=== PATIENT | female | born 1995 | race African-American/Black ===

== ENCOUNTER 2021-08-29 16:00 | Observation (INO) ==
[2021-08-29] MEDS ORDERED: ONDANSETRON 4 MG/2 ML VIAL IV STA (17:00)
[2021-08-29] MEDS ORDERED: SODIUM CHLORIDE 0.9% 1,000 ML IV STA (17:00)
[2021-08-29 17:23] LABS: Mucus,Urine Many /LPF (Occasional); RBC,Urine 11 /HPF (0-4); Squamous Epithelial Cell,Urine Few /HPF (0-10)
[2021-08-29 17:25] LABS: Urine Appearance Slightly Cloudy (Clear); Urine Color Orange (Yellow)
[2021-08-29 17:26] LABS: Protein,Urine 2+ MG/DL; Urine Specific Gravity 1.027 (1.001-1.035)
[2021-08-29 17:27] LABS: Bilirubin,Urine Small mg/dL (Negative); Blood, Urine Trace mg/dL (Negative); Glucose,Urine (UA) Negative (Negative); Ketones,Urine >=160 mg/dL (Negative); Nitrite,Urine Negative (Negative)
[2021-08-29] MEDS ORDERED: cefTRIAXone 1,000 MG in SODIUM CHLORIDE 0.9% 100 ML IV STA (17:44)
[2021-08-29 17:57] LABS: Basophils % 0.4 % (0.0-0.8); Eosinophils % 0.1 % (0.00-10.9); Hemoglobin 13.4 GM/DL (12.0-16.0); Immature Granulocytes % 0.4 %; Immature Granulocytes Absolute 0.03 #; Lymphocytes # 1.7 10*3/uL (1.4-4.0); Mean Corpuscular HGB Conc 36.2 GM/DL (32-36); Mean Corpuscular Volume 85.3 FL (87-102); Mean Platelet Volume 9.3 FL (9.6-12.0); Neutrophils % 69.1 % (38.7-73.9); Platelet Count 357 T/CUMM (130-400); Red Blood Count 4.34 MC/CUMM (3.8-5.5); Red Cell Distribution Width 12.9 % (9.3-17.3); White Blood Count 8.3 T/CUMM (4-12)
[2021-08-29 18:08] LABS: Albumin 3.2 G/DL (3.4-5.0); Bilirubin,Total 1.6 MG/DL (0.20-1.00); Calcium 9.3 MG/DL (8.5-10.1); Osmolality,Calculated 259.5 MOS/KG (273-304); Total Protein 7.7 G/DL (6.4-8.2)
[2021-08-29 18:12] LABS: Potassium 2.5 MMOL/L (3.5-5.1)
[2021-08-29] MEDS ORDERED: ACETAMINOPHEN 325 MG TABLET PO PRN (19:43)
[2021-08-29] MEDS: SODIUM CHLORIDE 0.9% 1,000 ML IV SCH (20:02)
[2021-08-29] MEDS: POTASSIUM CHLORIDE RIDER 10 MEQ/100 ML PREMIX IV SCH ×3 (21:46→23:24)
[2021-08-30] MEDS: POTASSIUM CHLORIDE RIDER 10 MEQ/100 ML PREMIX IV SCH (00:35)
[2021-08-30] MEDS: ONDANSETRON 4 MG/2 ML VIAL IV SCH ×7 (00:35→20:10)
[2021-08-30] MEDS: SODIUM CHLORIDE 0.9% 1,000 ML IV SCH (06:28)
[2021-08-30 07:26] LABS: Calcium 8.4 MG/DL (8.5-10.1)
[2021-08-30 07:38] LABS: Potassium 2.3 MMOL/L (3.5-5.1)
[2021-08-30] MEDS ORDERED: POTASSIUM CHLORIDE RIDER 10 MEQ/100 ML PREMIX IV PRN (07:45)
[2021-08-30] MEDS ORDERED: POTASSIUM CHLORIDE 20 MEQ TABLET PO SCH ×2 (09:00→15:00)
[2021-08-30] MEDS ORDERED: LEVOFLOXACIN INJ 250 MG/50 ML PREMIX IV SCH (13:00)
[2021-08-30] MEDS: PANTOPRAZOLE 40 MG VIAL IV SCH ×2 (13:50→21:38)
[2021-08-30] MEDS: SODIUM CHLOR 0.9% KCL 20 MEQ 20 MEQ/1,000 ML BAG IV SCH (14:58)
[2021-08-30] MEDS ORDERED: ONDANSETRON 4 MG/2 ML VIAL IV PRN (18:00)
[2021-08-30] MEDS: POTASSIUM BICARB EFFERVESCENT 20 MEQ TAB.EFF PO SCH (22:33)
[2021-08-30] MEDS ORDERED: METOCLOPRAMIDE 10 MG/2 ML VIAL IV PRN (23:14)
[2021-08-31] MEDS: SODIUM CHLOR 0.9% KCL 20 MEQ 20 MEQ/1,000 ML BAG IV SCH (00:11)
[2021-08-31] MEDS: ONDANSETRON 4 MG/2 ML VIAL IV SCH ×4 (00:17→12:31)
[2021-08-31] MEDS ORDERED: SCOPOLAMINE 1.5 MG PATCH TRANSDERM SCH ×2 (03:55→09:00)
[2021-08-31 05:57] LABS: Blood Urea Nitrogen < 1 MG/DL (7-18); Calcium 8.4 MG/DL (8.5-10.1); Carbon Dioxide 17 MMOL/L (21-32); Estimated Glom Filtration Rate 208 ML/MIN; Glucose 80 MG/DL (74-106); Osmolality,Calculated 268.2 MOS/KG (273-304); Potassium 2.7 MMOL/L (3.5-5.1); Sodium 137 MMOL/L (136-145)
[2021-08-31] MEDS: PANTOPRAZOLE 40 MG VIAL IV SCH (09:17)
[2021-08-31] MEDS: POTASSIUM BICARB EFFERVESCENT 20 MEQ TAB.EFF PO SCH (09:18)
[2021-08-31 17:34] VITALS: BP 110/64
== END 2021-08-31 17:00 | disposition home or self-care (01) ==
LOC: N.EDINP 16:00 → N.ED 16:00 → N.EDINP 19:23 → N.OB 19:28 → UNDODISOB 08-31 17:00
PROVIDERS: ADMIT Obstetrics & Gynecology; ATTEND Obstetrics & Gynecology

== ENCOUNTER 2021-11-04 10:07 | Observation (INO) ==
[2021-11-04 11:55] LABS: Basophils # 0.1 10*3/uL (0.0-0.2); Basophils % 0.4 % (0.0-0.8); Eosinophils # 0.1 10*3/uL (0.0-0.87); Eosinophils % 0.6 % (0.00-10.9); Hematocrit 29.4 VOL% (35.7-47.0); Immature Granulocytes % 3.1 %; Immature Granulocytes Absolute 0.39 #; Lymphocytes # 2.1 10*3/uL (1.4-4.0); Lymphocytes % 16.2 % (21.3-54.2); Mean Corpuscular Volume 95.5 FL (87-102); Mean Platelet Volume 8.5 FL (9.6-12.0); Monocytes # 1.2 10*3/uL (0.11-0.8); Monocytes % 9.2 % (1.7-12.7); NRBC # 0.03 10*3/uL; Neutrophils % 70.5 % (38.7-73.9); Platelet Count 564 T/CUMM (130-400); Red Blood Count 3.08 MC/CUMM (3.8-5.5); Red Cell Distribution Width 16.2 % (9.3-17.3); White Blood Count 12.8 T/CUMM (4-12)
[2021-11-04 12:22] LABS: Albumin 2.1 G/DL (3.4-5.0); Bilirubin,Total 0.4 MG/DL (0.20-1.00); Calcium 9.1 MG/DL (8.5-10.1); Osmolality,Calculated 263.4 MOS/KG (273-304); Potassium 4.1 MMOL/L (3.5-5.1); Total Protein 6.6 G/DL (6.4-8.2)
[2021-11-04 13:54] LABS: Bacteria,Urine Occasional /HPF (Few); Hyaline Casts,Urine 1 /LPF (0-3); Mucus,Urine Occasional /LPF (Occasional); RBC,Urine 5 /HPF (0-4); Squamous Epithelial Cell,Urine Occasional /HPF (0-10)
[2021-11-04 13:55] LABS: Bilirubin,Urine Negative (Negative); Glucose,Urine (UA) Negative (Negative); Ketones,Urine Negative (Negative); Nitrite,Urine Negative (Negative); Protein,Urine Negative (Negative); Urine Appearance Clear (Clear); Urine Color Yellow (Yellow); Urine Specific Gravity 1.015 (1.001-1.035)
[2021-11-04 13:56] LABS: Blood, Urine Trace mg/dL (Negative)
[2021-11-04] MEDS ORDERED: SODIUM CHLORIDE 0.9% 1,000 ML IV STA (15:08)
[2021-11-04 15:30] LABS: Barbiturates Screen,Urine Negative (Negative); Benzodiazepines Screen,Urine Negative (Negative); Cannabinoid Screen,Urine Negative (Negative); Opiate Screen,Urine Negative (Negative); Phencyclidine Screen,Urine Negative (Negative)
[2021-11-04] MEDS ORDERED: atenoloL 25 MG TABLET PO STA (15:51)
[2021-11-04] MEDS ORDERED: METOPROLOL TARTRATE 5 MG/5 ML VIAL IV STA (16:09)
[2021-11-04] MEDS ORDERED: BISACODYL 10 MG SUPP RECTAL PRN (16:21)
[2021-11-04] MEDS ORDERED: LACTATED RINGERS 1,000 ML IV SCH (16:21)
[2021-11-04] MEDS ORDERED: MAGNESIUM HYDROXIDE SUSP 30 ML UDCUP PO PRN (16:21)
[2021-11-04] MEDS ORDERED: IBUPROFEN 800 MG TABLET PO PRN (16:21)
[2021-11-04] MEDS ORDERED: ACETAMINOPHEN 325 MG TABLET PO PRN (16:21)
[2021-11-04] MEDS ORDERED: ONDANSETRON 4 MG/2 ML VIAL IV PRN (16:21)
[2021-11-04] MEDS ORDERED: METOPROLOL TARTRATE 25 MG TABLET PO SCH (16:33)
[2021-11-04] MEDS ORDERED: DOCUSATE SODIUM 100 MG CAPSULE PO SCH (21:00)
[2021-11-04 22:58] VITALS: BP 129/94
== END 2021-11-04 22:30 | disposition other institution (70) ==
LOC: EDBD → EDUNIT# → N.EDINP 10:07 → N.ED 10:07 → N.OB 16:27
PROVIDERS: ADMIT Obstetrics & Gynecology; ATTEND Obstetrics & Gynecology